=== PATIENT | female | born 1975 | race African-American/Black ===

== ENCOUNTER 2019-12-19 18:59 | Emergency (ER) | payer OTHER ==
[~2019-12-19] VITALS: Ht 165.1 cm; Wt 129.8 kg
[2019-12-19 19:13] VITALS: Ht 165.1 cm; Wt 129.8 kg
[2019-12-19 20:06] LABS: PLATELET COUNT 297 x10^3mcL (130-400)
[2019-12-19 20:16] LABS: CALCIUM 9.3 mg/dL (8.5-10.1); CREATININE SERUM 1.1 mg/dL (0.6-1.0)
[2019-12-19 20:35] LABS: ALBUMIN 3.5 g/dL (3.4-5.0); BILIRUBIN TOTAL 0.3 mg/dL (0.20-1.00); TOTAL PROTEIN, SERUM 7.5 g/dL (6.4-8.2)
[2019-12-19 22:34] VITALS: BP 138/75
== END 2019-12-19 22:34 | disposition home or self-care (01) ==
LOC: ED 18:59
PROVIDERS: Emergency Medicine
DX: K80.20 Calculus of gallbladder without cholecystitis without obstruction (principal); I10 Essential (primary) hypertension; Z88.0 Allergy status to penicillin

== ENCOUNTER 2020-01-15 13:04 | Emergency (ER) | payer OTHER ==
[~2020-01-15] VITALS: Ht 165.1 cm; Wt 130.2 kg
[2020-01-15 13:18] VITALS: Ht 165.1 cm; Wt 130.2 kg
[2020-01-15 14:57] LABS: BASOPHIL % 0.6 % (0-2); PLATELET COUNT 235 x10^3mcL (130-400)
[2020-01-15 14:59] LABS: RED CELL DISTRIBUTION WIDTH 16.5 % (11.5-14.5)
[2020-01-15 15:39] LABS: CALCIUM 8.3 mg/dL (8.5-10.1); CARBON DIOXIDE 23.4 mmol/L (21-32); CHLORIDE SERUM 106 mmol/L (98-107); GFR1 > 60 mL/min; GLUCOSE SERUM 121 mg/dL (74-106); POTASSIUM SERUM 3.4 mmol/L (3.5-5.1); SODIUM SERUM 138 mmol/L (136-145)
[2020-01-15 15:43] LABS: ALKALINE PHOSPHATASE 94 U/L (46-116); ALT/SGPT 19 U/L (14-59); AST/SGOT 13 U/L (15-37); BILIRUBIN TOTAL 0.26 mg/dL (0.20-1.00); LIPASE 106 IU/L (73-393); TOTAL PROTEIN, SERUM 6.7 g/dL (6.4-8.2)
[2020-01-15 15:44] LABS: ALBUMIN 3.2 g/dL (3.4-5.0)
[2020-01-15 16:42] VITALS: BP 133/64
== END 2020-01-15 16:42 | disposition home or self-care (01) ==
LOC: ED 13:04
PROVIDERS: Emergency Medicine
DX: K80.20 Calculus of gallbladder without cholecystitis without obstruction (principal); I10 Essential (primary) hypertension; Z88.0 Allergy status to penicillin
CPT/HCPCS: J2270; J2405; J3010; J7030; Q0092

== ENCOUNTER 2020-02-28 04:53 | Emergency (ER) | payer OTHER ==
[2020-02-28 04:59] VITALS: BP 142/79
== END 2020-02-28 05:31 | disposition home or self-care (01) ==
LOC: ED 04:53
DX: L02.214 Cutaneous abscess of groin (principal); I10 Essential (primary) hypertension; M19.90 Unspecified osteoarthritis, unspecified site; Z88.0 Allergy status to penicillin